=== PATIENT | female | born 1945 | race Caucasian/White ===

== ENCOUNTER → 2016-10-23 | Outpatient (CLI) | payer MEDICARE, OTHER ==
[~2016-10-23] MED LIST: SYNTHROID50 MCG PO
== END ==
LOC: MAMO 11:39
DX: Z12.31 Encounter for screening mammogram for malignant neoplasm of breast (principal); Z78.0 Asymptomatic menopausal state
CPT/HCPCS: G0202

== ENCOUNTER → 2020-07-11 | Outpatient (CLI) | payer MEDICARE, OTHER ==
[2020-07-11 09:21] LABS: HEMOGLOBIN 14.5 gm/dl (12.3-15.3); RED BLOOD COUNT 4.42 M/UL (4.00-5.10); WHITE BLOOD COUNT 7.4 K/UL (4.5-11.0)
[2020-07-12 12:14] LABS: CREATININE, URINE 131.8 mg/dL (Not Estab.)
[2020-07-13 13:11] LABS: CHOLESTEROL, TOTAL 285 mg/dL (100-199); HDL-C 48 mg/dL (>39); HDL-P (TOTAL) 30.7 umol/L (>=30.5); LARGE HDL-P 5.3 umol/L (>=4.8); LARGE VLDL-P 2.3 nmol/L (<=2.7); LDL SIZE 21.8 nm (>20.5); LDL SIZE 21.8 nm (>=20.8); LDL-C 208 mg/dL (0-99); LDL-P 2233 nmol/L (<1000); LP-IR SCORE 36 (<=45); SMALL LDL-P 617 nmol/L (<=527); TRIGLYCERIDES 157 mg/dL (0-149); VLDL SIZE 39.2 nm (<=46.6)
== END ==
LOC: LAB 08:49
PROVIDERS: Emergency Medicine
DX: N18.30 Chronic kidney disease, stage 3 unspecified (principal); E78.2 Mixed hyperlipidemia; E03.8 Other specified hypothyroidism
CPT/HCPCS: 36415; 80053; 82043; 82570; 84443; 85025

== ENCOUNTER → 2020-11-25 | Outpatient (CLI) | payer MEDICARE, OTHER | LOC: RT 10:06 | DX: Z01.810 Encounter for preprocedural cardiovascular examination (principal); R00.1 Bradycardia, unspecified | CPT/HCPCS: 93005 ==

== ENCOUNTER → 2021-01-04 | Outpatient (CLI) | payer MEDICARE, OTHER | LOC: EXRD 12-21 14:00 | DX: M81.0 Age-related osteoporosis without current pathological fracture (principal); M85.88 Other specified disorders of bone density and structure, other site | CPT/HCPCS: 77080 ==

== ENCOUNTER → 2022-01-04 | Outpatient (CLI) | payer MEDICARE, OTHER ==
[2022-01-04 09:52] LABS: BUN/CREATININE RATIO 24 (0-10)
[2022-01-06 11:15] LABS: CHOLESTEROL, TOTAL 177 mg/dL (100-199); HDL SIZE 9.2 nm (>=9.2); HDL-C 49 mg/dL (>39); HDL-P (TOTAL) 31.3 umol/L (>=30.5); LARGE HDL-P 6.2 umol/L (>=4.8); LARGE VLDL-P 1.8 nmol/L (<=2.7); LDL SIZE 21.3 nm (>20.5); LDL SIZE 21.3 nm (>=20.8); LDL-C 102 mg/dL (0-99); LDL-P 1124 nmol/L (<1000); LP-IR SCORE 34 (<=45); SMALL LDL-P 511 nmol/L (<=527); TRIGLYCERIDES 146 mg/dL (0-149); VLDL SIZE 42.7 nm (<=46.6)
== END ==
LOC: LAB 09:09
PROVIDERS: Emergency Medicine
DX: E78.2 Mixed hyperlipidemia (principal); E03.8 Other specified hypothyroidism; I10 Essential (primary) hypertension; K21.9 Gastro-esophageal reflux disease without esophagitis
CPT/HCPCS: 36415; 80053; 80061; 83704; 84443

== ENCOUNTER → 2022-01-16 | Outpatient (CLI) | payer MEDICARE, OTHER | LOC: KOH-I 16:30 | DX: J20.9 Acute bronchitis, unspecified (principal) | CPT/HCPCS: 71046 ==